=== PATIENT | male | born 1940 | race Caucasian/White ===

== ENCOUNTER 2020-10-26 13:15 | Inpatient (IN) | payer MEDICARE ==
[~2020-10-26] VITALS: Ht 180.3 cm; Wt 75.8 kg
[2020-10-26] MEDS ORDERED: LASIX 40 MG TAB40 MG PO (17:12)
[2020-10-26] MEDS ORDERED: BAYER CHEWABLE81 MG PO (17:13)
[2020-10-26] MEDS ORDERED: VASOTEC 10 MG T10 MG PO (17:14)
[2020-10-26] MEDS ORDERED: ZOCOR 40 MG TAB40 MG GT (17:15)
[2020-10-26 18:32] LABS: RED BLOOD COUNT 4.27 M/UL (4.20-5.50); WHITE BLOOD COUNT 18.6 K/UL (4.5-11.0)
[2020-10-26 18:57] LABS: BUN/CREATININE RATIO 25 (0-10)
[2020-10-27 04:47] LABS: HEMOGLOBIN 12.1 gm/dl (14.0-17.5); RED BLOOD COUNT 3.96 M/UL (4.20-5.50)
[2020-10-27 05:15] LABS: BUN/CREATININE RATIO 25 (0-10)
[2020-10-28 05:38] LABS: HEMOGLOBIN 11.9 gm/dl (14.0-17.5); RED BLOOD COUNT 3.9 M/UL (4.20-5.50); WHITE BLOOD COUNT 12.2 K/UL (4.5-11.0)
[2020-10-28 06:03] LABS: BUN/CREATININE RATIO 14 (0-10)
[2020-10-29 05:45] LABS: BUN/CREATININE RATIO 10 (0-10)
--- NOTE | 2020-10-29 12:08 | NUR ---
PT WAS ABLE TO LAY FLAT ON BED WITH NO COMPLICATIONS. O2 STAT STAYED ABOVE 97% AND THE PT STATED THAT THE ONLY THING THAT BOTHERED HIM WAS HIS BACK. PT WAS NOT IN ANY DISTRESS WHILE LAYING ON HIS BACK. PT STATED HE BELIEVED HE WOULD BE JUST FINE TO LAY FLAT ON HIS BACK.
--- NOTE | 2020-10-29 12:18 | NUR ---
CONSENT SIGNED, ONLY THING THAT I DID NOT DO WAS THE PRE-PROCEDURE CHECKLIST. WILL PASS ON IN REPORT.
[2020-10-29 15:58] LABS: BORDETELLA PARAPERTUSSIS Not Detected (Not Detectd); BORDETELLA PERTUSSIS Not Detected (Not Detectd); CHLAMYDIA PNEUMONIAE Not Detected (Not Detectd); CORONAVIRUS HKU1 Not Detected (Not Detectd); CORONAVIRUS NL63 Not Detected (Not Detectd); CORONAVIRUS OC43 Not Detected (Not Detectd); CORONOAVIRUS 229E Not Detected (Not Detectd); HUMAN METAPNEUMOVIRUS Not Detected (Not Detectd); HUMAN RHINOVIRUS/ENTEROVIRUS Not Detected (Not Detectd); INFLUENZA A Not Detected (Not Detectd); INFLUENZA B Not Detected (Not Detectd); MYCOPLASMA PNEUMONIAE Not Detected (Not Detectd); PARAINFLUENZA VIRUS 1 Not Detected (Not Detectd); PARAINFLUENZA VIRUS 2 Not Detected (Not Detectd); PARAINFLUENZA VIRUS 3 Not Detected (Not Detectd); PARAINFLUENZA VIRUS 4 Not Detected (Not Detectd); RESPIRATORY SYNCYTIAL VIRUS Not Detected (Not Detectd)
[2020-10-29 17:02] LABS: SARS-CoV-2 NOT DETECTED (Not Detectd)
[2020-10-30 01:42] LABS: HEMOGLOBIN 12.5 gm/dl (14.0-17.5); RED BLOOD COUNT 4.15 M/UL (4.20-5.50); WHITE BLOOD COUNT 13.2 K/UL (4.5-11.0)
[2020-10-30 01:46] LABS: BUN/CREATININE RATIO 13 (0-10)
--- NOTE | 2020-10-30 14:57 | NUR ---
SPOKE TO VLADISLAV, NURSE WHO WILL BE RECEIVING PATIENT. SHE WILL CALL BACK TO GET REPORT, SHE IS CURRENTLY IN A PATIENT'S ROOM.
[2020-10-31 05:33] LABS: WHITE BLOOD COUNT 12.5 K/UL (4.5-11.0)
[2020-10-31 05:50] LABS: BUN/CREATININE RATIO 18 (0-10)
[2020-11-02 02:36] LABS: HEMOGLOBIN 12.6 gm/dl (14.0-17.5); RED BLOOD COUNT 4.16 M/UL (4.20-5.50); WHITE BLOOD COUNT 15.8 K/UL (4.5-11.0)
[2020-11-02 03:33] LABS: BUN/CREATININE RATIO 24 (0-10)
[2020-11-03] MEDS ORDERED: CLOPIDOGREL75 MG PO (11:03)
[2020-11-03] MEDS ORDERED: IPRAT-ALBUT 0.5-3 ML NEB (11:03)
[2020-11-03] MEDS ORDERED: DOXYCYCLINE HY100 MG PO (11:03)
[2020-11-03] MEDS ORDERED: ATORVASTATIN CA40 MG PO (11:03)
[2020-11-03] MEDS ORDERED: JARDIANCE10 MG PO (11:03)
[2020-11-03] MEDS ORDERED: MEDROL DOSEPAK 24 MG PO (11:03)
[2020-11-03] MEDS ORDERED: NEBULIZER UNIT INH (11:03)
[2020-11-03] MEDS ORDERED: HUMIBID LA TAB600 MG PO (11:03)
[2020-11-03] MEDS ORDERED: ELIQUIS5 M1 PO (11:15)
== END 2020-11-03 14:15 | disposition home or self-care (01) | DRG 853 ==
LOC: PROG CARE 16:42 → CCU 16:42 → PROG CARE 10-27 19:48 → MED SURG 4 10-30 16:17 → PROG CARE 11-01 14:58
PROVIDERS: Internal Medicine; Physician Assistant Medical; ADMIT Internal Medicine
PROC: 4A023N7 Measurement of Cardiac Sampling and Pressure, Left Heart, Percutaneous Approach (ICD-10-PCS; principal; 2020-11-01)
PROC: 027136Z Dilation of Coronary Artery, Two Arteries with Three Drug-eluting Intraluminal Devices, Percutaneous Approach (ICD-10-PCS; 2020-11-01)
PROC: B215YZZ Fluoroscopy of Left Heart using Other Contrast (ICD-10-PCS; 2020-11-01)
PROC: B211YZZ Fluoroscopy of Multiple Coronary Arteries using Other Contrast (ICD-10-PCS; 2020-11-01)
PROC: B41FYZZ Fluoroscopy of Right Lower Extremity Arteries using Other Contrast (ICD-10-PCS; 2020-11-01)
DX: A41.9 Sepsis, unspecified organism (principal); J96.01 Acute respiratory failure with hypoxia; J18.9 Pneumonia, unspecified organism; I50.23 Acute on chronic systolic (congestive) heart failure; J44.0 Chronic obstructive pulmonary disease with (acute) lower respiratory infection; J44.1 Chronic obstructive pulmonary disease with (acute) exacerbation; I11.0 Hypertensive heart disease with heart failure; F17.210 Nicotine dependence, cigarettes, uncomplicated; I48.91 Unspecified atrial fibrillation; I44.7 Left bundle-branch block, unspecified; J44.9 Chronic obstructive pulmonary disease, unspecified; Z20.822 Contact with and (suspected) exposure to COVID-19; R73.9 Hyperglycemia, unspecified; Z85.819 Personal history of malignant neoplasm of unspecified site of lip, oral cavity, and pharynx; Z79.01 Long term (current) use of anticoagulants; Z79.82 Long term (current) use of aspirin; Z79.899 Other long term (current) drug therapy
CPT/HCPCS: ECHO; 36415; 36600; 71045; 80048; 80061; 80202; 82550; 82553; 82803; 82962; 83036; 83735; 83880; 84132; 84439; 84443; 84484; 85025; 85027; 85347; 85730; 87081; 87633; 93005; 93306; 94640; 94660; 94664; 94760; C1725; C1760; C1769; C1874; C1887; C9600; C9601; J1644; J1940; J2250; J2270; J2543; J2920; J3010; J3370; J7070; Q9963; Q9967

== ENCOUNTER → 2022-04-07 | Outpatient (CLI) | payer MEDICARE ==
[~2022-04-07] MED LIST: ATORVASTATIN CA40 MG PO; BAYER CHEWABLE81 MG PO; CLOPIDOGREL75 MG PO; DOXYCYCLINE HY100 MG PO; ELIQUIS5 M1 PO; HUMIBID LA TAB600 MG PO; IPRAT-ALBUT 0.5-3 ML NEB; JARDIANCE10 MG PO; LASIX 40 MG TAB40 MG PO; MEDROL DOSEPAK 24 MG PO; NEBULIZER UNIT INH; VASOTEC 10 MG T10 MG PO; ZOCOR 40 MG TAB40 MG GT
== END ==
LOC: HEART 5 15:28
DX: J44.9 Chronic obstructive pulmonary disease, unspecified (principal); R91.8 Other nonspecific abnormal finding of lung field; I51.7 Cardiomegaly
CPT/HCPCS: 71046; 94060; 94729